=== PATIENT | male | born 1940 | race Caucasian/White ===

== ENCOUNTER 2016-11-01 | Outpatient (CLI) | payer MEDICARE, BC | END 2016-11-01 06:58 | disposition short-term general hospital (02) | DX: R07.9 Chest pain, unspecified (principal) | CPT/HCPCS: A0425; A0427; A0429 ==

== ENCOUNTER 2016-11-07 | Outpatient (CLI) | payer MEDICARE, BC | END 2016-11-07 01:10 | disposition short-term general hospital (02) | DX: R07.9 Chest pain, unspecified (principal) | CPT/HCPCS: A0425; A0427 ==

== ENCOUNTER 2017-01-04 03:12 | Outpatient (CLI) | payer MEDICARE, BC | END 2017-01-04 03:13 | disposition short-term general hospital (02) | DX: R07.9 Chest pain, unspecified (principal) | CPT/HCPCS: A0425; A0427 ==